=== PATIENT | male | born 1990 | race Caucasian/White ===

== ENCOUNTER 2017-05-21 22:18 | Emergency (ER) | payer OTHER ==
[~2017-05-21] VITALS: Ht 188 cm; Wt 67.8 kg
[~2017-05-21 22:18] MED LIST: CLC100X PO; HYDR2.5C37 TOP; OXYC1TAB3 PO
[2017-05-21 22:24] VITALS: TEMP 36.7; Ht 188 cm; Wt 67.8 kg
[2017-05-21] MEDS ORDERED: DOCU100C31 PO (22:44)
[2017-05-21] MEDS ORDERED: TRAM-453 PO (22:50)
[2017-05-21] MEDS ORDERED: CLIN300C2 PO (22:50)
--- NOTE | 2017-05-21 22:52 | EMERGENCY ROOM VISIT NOTE ---
ED Visit Note First contact with patient: 22:27 CHIEF COMPLAINT: Toothache HISTORY OF PRESENT ILLNESS: This 26-year-old male patient presented to the emergency department ambulatory complaining of "massive tooth pain." The patient states that he broke off one of his left upper molars 3-4 days ago. He states that since then, he has had progressively worsening pain, especially with chewing. The pain is now steady and severe and radiates to the face. The patient was seen by a dentist and referred to an oral surgeon. He has an appointment next month to have the tooth extracted. He rates his discomfort an 8/10. He has been taking [id number] pain medication without relief. Denies facial swelling or fever. The patient denies any discharge from the mouth. REVIEW OF SYSTEMS: A 6 system review of systems was completed with positives and pertinent negatives listed in the HPI. ALLERGIES: Clarithromycin, penicillins, sulfa drugs MEDICATIONS: See med list PMH: No significant past medical history. SOCIAL HISTORY: The patient lives locally with family. He is a smoker. PHYSICAL EXAM: Vitals are noted on the nurse's note and reviewed by myself. Vital signs stable. Temperature 36.7C orally. GENERAL: This is a 26-year-old male, in no acute distress, nondiaphoretic, well-developed well-nourished. Mouth: The left upper back molar is very carious and broken off. There is minimal swelling of the surrounding gums. There is no discharge or signs of an abscess. The remainder of the pharynx and tonsils are without erythema, edema, or exudate. The airway is patent. There is no facial swelling, cervical or submandibular lymphadenopathy. The patient appears uncomfortable and in pain. The patient has overall poor dental hygiene. EARS: External auditory canals clear, tympanic membranes pearly iyer without erythema or effusion bilaterally. ED COURSE: The patient was evaluated as above. He will be placed on clindamycin for a possible dental infection. He was given a home pack and short course of tramadol. He was provided with dental wax to help with symptomatic relief. He was instructed to keep his follow-up with his oral surgeon as scheduled. He verbalized understanding of my assessment and treatment plan and was discharged home in good condition. Patient was reviewed in the [place] prescription drug monitoring program; no red flags were identified. Medication reconciliation: I attest that I have personally reviewed the patient 's current medication list. Blood pressure screening: Patient was found to have normal blood pressure on screening and does not require follow-up. DIAGNOSIS: Odontalgia Problem List Medical Problems: (1) Blood clots Status: Resolved (2) Headache disorder Status: Chronic (3) Scoliosis Status: Chronic Current/Historical Medications Scheduled Clindamycin Hcl (Cleocin), 300 MG PO QID Docusate Sodium (Docusate Sodium), 1 CAP PO TID Tramadol Hcl (Ultram), 50 MG PO Q4H Scheduled PRN Acetaminophen (Tylenol), 1,000 MG PO for Pain Ibuprofen Tab (Advil), 400-600 MG PO Q6H PRN for Pain Allergies Coded Allergies: Penicillins (Verified Allergy, Intermediate, HIVES, BREATHING DIFFICULTY, 05/21/17) Sulfa Drugs (Verified Allergy, Intermediate, HIVES, 05/21/17) Clarithromycin (Verified Allergy, Unknown, HIVES, 05/21/17) Vital Signs Date Time Temp Pulse Resp B/P (MAP) Pulse Ox O2 Delivery O2 Flow Rate FiO2 05/21/17 23:01 74 16 114/54 98 05/21/17 22:24 36.7 102 18 122/75 100 Room Air Medications Administered Medications (Trade) Dose Ordered Sig/Sixto Route Start Time Stop Time Status Last Admin Dose Admin Tramadol HCl (Ultram Home Pack) 1 homepack UD ONCE PO 05/21/17 23:00 05/21/17 23:01 DC 05/21/17 22:59 1 HOMEPACK Clindamycin HCl (Cleocin 150MG Home Pack) 1 homepack UD ONCE PO 05/21/17 23:00 05/21/17 23:01 DC 05/21/17 22:59 1 HOMEPACK Departure Information Impression Primary Impression: Tooth pain with chewing Dispostion Home / Self-Care Condition GOOD Prescriptions Tramadol Hcl (ULTRAM) 50 Mg Tab 50 MG PO Q4H for Pain, #10 TAB For Initial Treatment Prov: Lizzy Lomeli PA-C 05/21/17 Clindamycin Hcl (CLEOCIN) 300 Mg Cap 300 MG PO QID for 7 Days, #28 CAP Prov: Lizzy Lomeli PA-C 05/21/17 Referrals No Doctor, Assigned (PCP) Patient Instructions My [facility] Additional Instructions You have been treated in the Emergency Department for Dental Pain. You have received pain medicine in the emergency department which impairs your ability to operate a vehicle. It is illegal for you to drive after receiving these medicines. You have been prescribed Tramadol to be used for pain control. You cannot drive or consume alcohol while on this medicine. This medicine should only be used for pain that cannot be controlled with [id number] pain medicines. You were prescribed Clindamycin to be taken as prescribed. This is an antibiotic. All antibiotics have the potential to cause diarrhea. Stop this medication and contact a medical provider if you were to develop any significant adverse side effects including: wheezing, shortness of breath, passing out, vomiting, or a diffuse rash. Always take antibiotics as directed and COMPLETE the ENTIRE course regardless of the improvement of your symptoms. For pain control, you can use the following [id number] medicines (if >12 yo): - Regular strength (325mg/tab) Tylenol (acetaminophen) 2 tabs every 4-6 hours as needed. Do not exceed 12 tablets in a 24 hour period. Avoid taking more than 4 grams (4000 mg) of Tylenol per day. This includes any other sources of acetaminophen you may take on a regular basis. - Regular strength (200 mg/tab) Advil (ibuprofen) 1-2 tabs every 4-6 hours as needed. Do not exceed a dose of 3200 mg per day. Refrain from smoking cigarettes or using chewing tobacco until you have been evaluated by your dentist. Keeping beverages lukewarm and consuming soft foods can decrease your pain. Warm compresses over the affected area may offer some relief. You MUST seek evaluation of your dental pain by a dentist following your visit to the Emergency Department. The Emergency Department is not capable of treating dental issues long-term. You should call your dentist as soon as possible to make an appointment for evaluation of your dental pain. Return to the emergency department if you develop the following symptoms despite treatment course outlined above: fever, intractable pain, increased redness, swelling, or purulent discharge.
[2017-05-21] MEDS ORDERED: TRAMADOL HCL 50 MG HOME PACK PO ONE (23:00)
[2017-05-21] MEDS ORDERED: CLINDAMYCIN 150MG HOME PACK PO ONE (23:00)
[2017-05-21 23:01] VITALS: BP 114/54; PULSE 74; O2SAT 98
[2017-07-02] MEDS ORDERED: IBUP-103 PO (13:07)
[2017-07-02] MEDS ORDERED: ACET-1256 PO (13:07)
== END 2017-05-21 22:58 | disposition home or self-care (01) ==
LOC: C.EDB 22:19 → C.EDC 22:58
DX: K08.89 Other specified disorders of teeth and supporting structures (principal); F17.200 Nicotine dependence, unspecified, uncomplicated; M41.9 Scoliosis, unspecified; Z86.718 Personal history of other venous thrombosis and embolism

== ENCOUNTER 2017-05-23 06:00 | Emergency (ER) | payer OTHER ==
[~2017-05-23] VITALS: Ht 188 cm; Wt 66.9 kg
[~2017-05-23 06:00] MED LIST changes: -CLC100X PO; +CLIN300C2 PO; +DOCU100C31 PO; -HYDR2.5C37 TOP; -OXYC1TAB3 PO; +TRAM-453 PO
[2017-05-23 06:05] VITALS: TEMP 36.6; Ht 188 cm; Wt 66.9 kg
[2017-05-23] MEDS ORDERED: BUPIVACAINE 0.25% 30 ML VIAL INFIL ONE (07:15)
--- NOTE | 2017-05-23 07:49 | EMERGENCY ROOM VISIT NOTE ---
History First contact with patient: 06:19 Chief Complaint: DENTAL PAIN Stated Complaint: TOOTH PAIN Nursing Triage Summary: Dental pain and throat pain. woke with symptoms this am. History of Present Illness The patient is a 26 year old male who presents to the Emergency Room with complaints of severe, 9/10 dental pain since 4 am today. The pain radiates to the left ear and left sided jaw, and believes the pain is moving to the right side of his jaw. The jaw is tense, and he is having difficulty opening the jaw to swallow. The pain is worse than his ED visit 2 days ago. Hot and cold compresses makes the pain worse. He reports he has been taking the clindamycin antibiotic given to him 2 days ago. He reports chills and feeling feverish when waking up today, normal temp in ED today. Patient reports the wax given to him seems to be stuck in the area of the cracked off tooth. Review of Systems Pt denies LOC, headache, fevers, chills, diaphoresis, visual changes, neck pain , chest pain, breathing difficulties, nausea, vomiting, abdominal pain, back pain, melena, hematochezia, urinary symptoms, numbness, weakness, lymphadenopathy, rash, or other complaints. Past Medical/Surgical History Medical Problems: (1) Blood clots (2) Headache disorder (3) Scoliosis Family History Diabetes mellitus Heart disease Hypertension Kidney disease Social History Smoking Status: Current Every Day Smoker Alcohol Use: none Drug Use: none Marital Status: Housing Status: lives with significant other Occupation Status: unemployed Current/Historical Medications Scheduled Clindamycin Hcl (Cleocin), 300 MG PO QID Docusate Sodium (Docusate Sodium), 1 CAP PO TID Tramadol Hcl (Ultram), 50 MG PO Q4H Scheduled PRN Acetaminophen (Tylenol), 1,000 MG PO for Pain Ibuprofen Tab (Advil), 400-600 MG PO Q6H PRN for Pain Physical Exam Vital Signs Date Time Temp Pulse Resp B/P (MAP) Pulse Ox O2 Delivery O2 Flow Rate FiO2 05/23/17 08:10 74 16 118/75 99 05/23/17 06:05 36.6 83 20 125/77 99 Room Air Physical Exam GENERAL: Awake, alert, well-appearing, in mild distress HENT: Normocephalic, atraumatic. 1st molar (left upper back tooth) noted to be of different size/part of molar is missing/cracked off. Residual dental wax noted/ area of brown and black around periphery of tooth. Left maxilla and mandible tender to palpation. EYES: Normal conjunctiva. Sclera non-icteric. NECK: Supple. No nuchal rigidity. FROM. No JVD. RESPIRATORY: Clear to auscultation. CARDIAC: Regular rate, normal rhythm. Extremities warm and well perfused. Pulses equal. ABDOMEN: Soft, non-distended. No tenderness to palpation. No rebound or guarding. No masses. MUSCULOSKELETAL: Chest examination reveals no tenderness. The back is symmetrical on inspection without obvious abnormality. There is no CVA tenderness to palpation. No joint edema. LOWER EXTREMITIES: Calves are equal size bilaterally and non-tender. No edema. No discoloration. NEURO: Normal sensorium. No sensory or motor deficits noted. SKIN: No rash or jaundice noted. Medical Decision & Procedures ED Course 0600: patient roomed in A02 0620: history and physical exam performed 0655: patient offered nerve block, and given information regarding new dentist in the area, Dr. Arias 0700: Patient consents to dental nerve block, warned of risks and benefits 0720: Patient injected with 2cc bupivicaine; tolerated procedure well. 0730: Patient told to wait 15 minutes for effect and to watch for side effects, then patient ok for discharge. Patient agrees with plan. Medical Decision 26 yo male with left sided 1st molar pain, scheduled for dental extraction in 1 month. Revisits ED today with worsening of pain and symptoms of difficulty swallowing. DDx: Dental abscess, dental hamlet/cavity Patient struggling with worsening pain since his visit 2 days ago for same presentation. Patient reports he is taking tramadol with ibuprofen with food and is taking his clindamycin antibiotic as prescribed. Discussed natural course of these dental infections. Provided patient with option for dental nerve block, which he expressed his desire for. Patient provided with risks and benefits, patient understands and consents. 2mL 0.25% bupivicaine injected for posterior superior alveolar nerve block at the height of mucobuccal fold between 1st and 2nd molar. I reevaluated the patient. Discussed results and discharge instructions: Patient verbalized understanding and agreement. The patient is ready for discharge. Discussed patient should follow up with dentist sooner rather than later; contact information for new dentist Dr. Arias given to patient Discussed need for soft diet and avoidance of chewing on affected side, use of probiotic to offset side effects of antibiotic, continued use of tramadol and ibuprofen for pain as directed. Impression Primary Impression: Tooth pain with chewing Additional Impression: Dental caries Departure Information Dispostion Home / Self-Care Condition GOOD Referrals Isidro Chapin M.D. (PCP) Patient Instructions [facility] Additional Instructions Discussed patient should follow up with dentist; Discussed soft diet, use of probiotic, continued use of tramadol and ibuprofen for pain. Discussed patient should follow up with dentist sooner rather than later; contact information for new dentist Dr. Arias given to patient Discussed need for soft diet (applesauce, warm broth, pudding, jello,etc.) and avoidance of chewing on affected side, use of probiotic to offset side effects of antibiotic, continued use of tramadol and ibuprofen for pain as directed Resident Tracking Resident Involvement: Resident Care Provided Care Provided: Adult ED Problem Qualifiers
[2017-05-23 08:10] VITALS: BP 118/75; PULSE 74; O2SAT 99
--- NOTE | 2017-05-23 09:21 | EMERGENCY ROOM VISIT NOTE ---
ED Visit Note First contact with patient: 06:36 Pt seen and examined at the bedside with the resident. No obvious facial swelling, pain with percussion of left upper molar, no fluctuance at the gumline , no bleeding/discharge, no fever/chills. Pt given ibuprofen and tramadol at home, started on clindamycin previously. Doubt abscess, osteomyelitis, deep space infection. Pt given dental block here, discussed sx to watch/return for, has f/u already scheduled with a dentist for next week.
[2017-07-02] MEDS ORDERED: ACET-1256 PO (13:07)
[2017-07-02] MEDS ORDERED: IBUP-103 PO (13:07)
== END 2017-05-23 08:11 | disposition home or self-care (01) ==
LOC: C.EDB 06:02 → C.EDA 08:11
DX: K02.9 Dental caries, unspecified (principal); K08.89 Other specified disorders of teeth and supporting structures; F17.200 Nicotine dependence, unspecified, uncomplicated; Z79.899 Other long term (current) drug therapy; Z83.3 Family history of diabetes mellitus; Z82.49 Family history of ischemic heart disease and other diseases of the circulatory system; Z84.1 Family history of disorders of kidney and ureter

== ENCOUNTER 2017-07-02 16:05 | Emergency (ER) | payer OTHER ==
[~2017-07-02] VITALS: Ht 188 cm; Wt 52.6 kg
[~2017-07-02 16:05] MED LIST changes: +ACET-1256 PO; -CLIN300C2 PO; +IBUP-103 PO; -TRAM-453 PO
[2017-07-02 16:25] VITALS: TEMP 37.6; Ht 188 cm; Wt 52.6 kg
[2017-07-02] MEDS ORDERED: OXYCODONE HCL IR 5 MG TAB (IMMEDIATE RELEASE) PO STA (17:21)
[2017-07-02] MEDS ORDERED: OXYC1TAB3 PO (17:24)
[2017-07-02] MEDS ORDERED: OXYCODONE IR HOME PACK PO ONE (17:30)
[2017-07-02] MEDS ORDERED: HYDR-3983 PO (17:31)
[2017-07-02] MEDS ORDERED: CHLO0.122 PO (17:31)
--- NOTE | 2017-07-02 17:31 | EMERGENCY ROOM VISIT NOTE ---
History First contact with patient: 17:10 Chief Complaint: DENTAL PAIN Stated Complaint: HAD 6 TEETH PULLED,SWELLING IN THROAT AND YAZIDISM Nursing Triage Summary: Pt had 6 teeth pulled 06/[address] Andi Honeycutt. Pt now c/o sore throat, difficulty eating, pain that is shooting into temples bilaterally. Pt has been taking abx, mouth wash, Vicodin. Took 1 this am and 1 at noon. Attempted to call dentist, they were not in. Referred to ED by RN, "they said it could be dry socket" History of Present Illness The patient is a 26 year old male who presents to the Emergency Room with complaints of persistent post extraction dental pain and mild bleeding. The patient reports that he uses an oral rinse. He did smoke a cigarette prostate 36 hours after extraction. He called his dentist office today, and was referred to the emergency department for possible dry sockets. The patient denies any throat swelling, fevers, neck pain or headache. The patient was taking some leftover antibiotics as recommended by his PCP, along with ibuprofen and pain medication that was prescribed. He only has to of his pain medications left. He rates his discomfort a 9 out of 10. Review of Systems 10 system review was performed and was negative except for pertinent positives and negatives as indicated in history of present illness Past Medical/Surgical History Medical Problems: (1) Blood clots (2) Headache disorder (3) Scoliosis Family History Diabetes mellitus Heart disease Hypertension Kidney disease Social History Smoking Status: Current Every Day Smoker Alcohol Use: none Drug Use: none Marital Status: Housing Status: lives with significant other Occupation Status: unemployed Current/Historical Medications Scheduled Docusate Sodium (Docusate Sodium), 1 CAP PO TID Scheduled PRN Acetaminophen (Tylenol), 1,000 MG PO for Pain Ibuprofen Tab (Advil), 400-600 MG PO Q6H PRN for Pain Oxycodone Ir (Roxicodone Ir), 1-2 TAB PO Q4H PRN for Pain Physical Exam Vital Signs Date Time Temp Pulse Resp B/P (MAP) Pulse Ox O2 Delivery O2 Flow Rate FiO2 07/02/17 16:25 37.6 99 16 120/74 100 Room Air Physical Exam CONSTITUTIONAL: Healthy and well nourished. Alert and oriented X 3 with positive affect. Patient appears in mild to moderate discomfort. HEENT: Normocephalic, atraumatic. Pupils equal, round and reactive. No facial edema or erythema noted. OROPHARYNX: Patient has evidence for dental extractions without any peripheral gingival erythema, fluctuance, active bleeding from the extraction sites or purulent drainage. No evidence for Dionte's angina or retropharyngeal abscess. LYMPHATICS: No cervical, submandibular, preauricular or submental adenopathy. NECK: Full active range of motion without discomfort. RESPIRATORY: Clear to auscultation bilaterally with no wheezing, crackles, rhonchi or stridor. CARDIOVASCULAR: Regular rate and rhythm with no murmurs, rubs or gallops. MUSCULOSKELETAL: Full range of motion of all joints without discomfort. INTEGUMENTARY: No rash or other significant dermatologic conditions noted. NEUROLOGIC: No focal neurologic deficits noted. Medical Decision & Procedures ED Course Patient history and physical exam were performed. Nurse's notes were reviewed. I also reviewed the [place] Prescription Drug Monitoring Program, showing that the patient filled a prescription on 06/29/17 for Vicodin 7.5/325, dispensed #15. His was prescribed by his oral surgeon, Dr. Lugo. The patient was administered OxyIR 5 mg for pain, and received a home pack and prescription for OxyIR 5 mg, dispensed #15 with no refills. He was also encouraged to alternate ibuprofen and Tylenol for baseline pain relief. The patient was instructed to follow-up with his oral surgeon for further reevaluation and management. The patient voiced understanding of all discharge instructions, was happy with plan of care, and rated his pain a 7 out of 10 at the conclusion of my exam. Medical Decision [place] Drug Monitoring Program Search Results: patient reviewed within database, no issues identified Medication Reconcilliation Current Medication List: was personally reviewed by me Impression Primary Impression: Post extraction dental pain Departure Information Dispostion Home / Self-Care Prescriptions Oxycodone Ir (Roxicodone Ir) 5 Mg Tab 1-2 TAB PO Q4H Y for Pain, #15 TAB For Initial Treatment Prov: Chris Vaughn PA 07/02/17 Forms HOME CARE DOCUMENTATION FORM, IMPORTANT VISIT INFORMATION Patient Instructions My [facility] Additional Instructions Continue with all instructions per your oral surgeon. Ibuprofen 800 mg and/or Tylenol 1000 mg every 8 hours. You may also alternate these medications for more effective pain relief: Ibuprofen --4 HRS--> Tylenol --4 HRS--> ibuprofen --4 HRS--> Tylenol .... OxyIR if needed for worse pain. Do not drink alcohol or drive while taking OxyIR. Follow-up with your oral surgeon for further reevaluation and management. The Emergency department does not provide dental services.
[2017-07-02] MEDS ORDERED: CLIN300C2 PO (17:32)
[2017-07-02 17:55] VITALS: BP 119/70; PULSE 99; O2SAT 100
== END 2017-07-02 17:56 | disposition home or self-care (01) ==
LOC: C.EDB 16:06 → C.EDD 17:56
DX: G89.18 Other acute postprocedural pain (principal); F17.210 Nicotine dependence, cigarettes, uncomplicated; Z86.718 Personal history of other venous thrombosis and embolism; M41.9 Scoliosis, unspecified; Z83.3 Family history of diabetes mellitus; Z82.49 Family history of ischemic heart disease and other diseases of the circulatory system; Z79.899 Other long term (current) drug therapy